=== PATIENT | female | born 1990 | race African-American/Black ===

== ENCOUNTER 2017-01-24 15:18 | Observation (INO) | payer OTHER ==
[2017-01-24 17:40] LABS: BASOPHILS # (AUTO) 0.1 X10^3/uL (0.0-0.1); BASOPHILS % (AUTO) 0.9 % (0.2-1.0); EOSINOPHILS # (AUTO) 0.1 x10^3/uL (0.0-0.2); EOSINOPHILS % (AUTO) 1.1 % (0.9-2.9); HEMATOCRIT 39.2 % (36.0-47.0); HEMOGLOBIN 13.3 g/dL (12.0-16.0); LYMPHOCYTES # (AUTO) 2.5 X10^3/uL (1.3-2.9); LYMPHOCYTES % (AUTO) 37.5 % (21.0-51.0); MEAN CORPUSCULAR HEMOGLOBIN 24.7 pg (27.0-34.0); MEAN CORPUSCULAR HGB CONC 33.8 g/dL (33.0-35.0); MEAN CORPUSCULAR VOLUME 73.2 fL (80.0-100.0); MEAN PLATELET VOLUME 9.1 fL (7.4-11.0); MONOCYTES # (AUTO) 0.6 x10^3/uL (0.3-0.8); MONOCYTES % (AUTO) 9.4 % (0.0-13.0); NEUTROPHILS # (AUTO) 3.5 x10^3/uL (2.2-4.8); NEUTROPHILS % (AUTO) 51.1 % (42.0-75.0); PLATELET COUNT 315 X10^3/uL (150.0-450.0); RED BLOOD COUNT 5.36 X10^6/uL (3.5-5.4); RED CELL DISTRIBUTION WIDTH 16.3 % (11.6-16.5); WHITE BLOOD COUNT 6.8 X10^3/uL (3.6-10.0)
[2017-01-24 17:41] VITALS: BMI 38.9
[2017-01-24 17:53] LABS: ALANINE AMINOTRANSFERASE 24 Units/L (12-78); ALBUMIN 4.2 g/dL (3.4-5.0); ALKALINE PHOSPHATASE 73 Units/L (46-116); AMYLASE 68 Units/L (25-115); ASPARTATE AMINO TRANSFERASE 20 Units/L (15-37); BLOOD UREA NITROGEN 11 mg/dL (7-18); CALCIUM 9.4 mg/dL (8.5-10.1); CARBON DIOXIDE 20.5 mmol/L (21-32); CHLORIDE 108 mmol/L (98-107); CREATININE 1.16 mg/dL (0.55-1.02); GLUCOSE 92 mg/dL (65-99); LIPASE 88 Units/L (73-393); MAGNESIUM 1.4 mg/dL (1.7-2.9); SODIUM 144 mmol/L (136-145); TOTAL PROTEIN 8.6 g/dL (6.4-8.2); eGFR BLACK RACES > 60 (>60); eGFR NON BLACK RACES 59 (>60)
[2017-01-24] MEDS ORDERED: K-RIDER 10 MEQ/NS 100 ML 10 MEQ/100 ML BAG IV PRN (17:57)
[2017-01-24] MEDS ORDERED: POTASSIUM CHLORIDE LIQ 20 MEQ UDC PO PRN (17:57)
[2017-01-24] MEDS ORDERED: K-LYTE EFFERVESCENT PO PRN (17:57)
[2017-01-24 18:09] LABS: HYPOCHROMASIA SLIGHT; MICROCYTOSIS SLIGHT; PLATELET MORPHOLOGY COMMENT NORMAL (NORMAL)
[2017-01-24] MEDS: NS 1000 ML 1,000 ML IV SCH (18:14)
[2017-01-24] MEDS: PHENERGAN INJ 25 MG IV PRN (18:14)
--- NOTE | 2017-01-24 19:35 | RAD ---
HISTORY: Nausea and vomiting and diarrhea Study: Acute abdominal series Comparison: None Findings: The trachea is midline. The cardiac silhouette is unremarkable. The lungs are clear without focal infiltrate or effusion. The bony thorax is unremarkable. Flat plate and upright evaluation of the abdomen demonstrates a normal bowel gas pattern. There are cholecystectomy clips. No pathological soft tissue mass or calcification can be observed. The bony structures are grossly intact. IMPRESSION: 1. No acute cardiopulmonary disease. 2. No evidence for acute abdominal pathology identified. Reported By:
[2017-01-24] MEDS: PROTONIX INJ 40 MG VIAL IVP SCH (21:10)
[2017-01-24] MEDS: TYLENOL 325 MG TAB PO PRN (21:59)
[2017-01-24] MEDS: K-DUR TAB 20 MEQ PO PRN (23:21)
[2017-01-25 00:25] LABS: CRYPTOSPORIDIUM PARVUM ANTIGEN NEGATIVE (NEGATIVE); GIARDIA LAMBLIA ANTIGEN NEGATIVE (NEGATIVE)
[2017-01-25] MEDS: NS 1000 ML 1,000 ML IV SCH ×5 (02:40→14:10)
[2017-01-25 06:31] LABS: BASOPHILS % (AUTO) 0.8 % (0.2-1.0); EOSINOPHILS # (AUTO) 0.1 x10^3/uL (0.0-0.2); EOSINOPHILS % (AUTO) 2.6 % (0.9-2.9); HEMATOCRIT 34.8 % (36.0-47.0); HEMOGLOBIN 11.6 g/dL (12.0-16.0); LYMPHOCYTES # (AUTO) 1.9 X10^3/uL (1.3-2.9); LYMPHOCYTES % (AUTO) 40.1 % (21.0-51.0); MEAN CORPUSCULAR HEMOGLOBIN 24.6 pg (27.0-34.0); MEAN CORPUSCULAR HGB CONC 33.4 g/dL (33.0-35.0); MEAN CORPUSCULAR VOLUME 73.7 fL (80.0-100.0); MEAN PLATELET VOLUME 9.3 fL (7.4-11.0); MONOCYTES # (AUTO) 0.6 x10^3/uL (0.3-0.8); MONOCYTES % (AUTO) 12.4 % (0.0-13.0); NEUTROPHILS # (AUTO) 2.1 x10^3/uL (2.2-4.8); NEUTROPHILS % (AUTO) 44.1 % (42.0-75.0); PLATELET COUNT 262 X10^3/uL (150.0-450.0); RED BLOOD COUNT 4.72 X10^6/uL (3.5-5.4); WHITE BLOOD COUNT 4.8 X10^3/uL (3.6-10.0)
[2017-01-25 06:45] LABS: ALANINE AMINOTRANSFERASE 22 Units/L (12-78); ALBUMIN 3.2 g/dL (3.4-5.0); ALKALINE PHOSPHATASE 57 Units/L (46-116); ASPARTATE AMINO TRANSFERASE 23 Units/L (15-37); BLOOD UREA NITROGEN 8 mg/dL (7-18); CALCIUM 8.3 mg/dL (8.5-10.1); CHLORIDE 110 mmol/L (98-107); COR CA(FOR HYPOALB) 8.9 mg/dL (8.5-10.1); CREATININE 1.04 mg/dL (0.55-1.02); GLUCOSE 89 mg/dL (65-99); SODIUM 143 mmol/L (136-145); eGFR BLACK RACES > 60 (>60); eGFR NON BLACK RACES > 60 (>60)
[2017-01-25 07:29] LABS: HYPOCHROMASIA SLIGHT; MICROCYTOSIS SLIGHT; PLATELET MORPHOLOGY COMMENT NORMAL (NORMAL)
[2017-01-25] MEDS: PROTONIX INJ 40 MG VIAL IVP SCH ×2 (08:37→21:00)
[2017-01-25] MEDS ORDERED: ZESTRIL TAB 20 MG ONE (11:37)
[2017-01-25] MEDS: ZESTRIL TAB 20 MG PO SCH (12:29)
--- NOTE | 2017-01-25 13:46 | DR.H&P ---
H&P - History & Physical for Day of: H&P Date: 01/24/17 - Chief Complaint Chief Complaint: ABDOMINAL PAIN N/V/D - Allergies Allergies/Adverse Reactions: Allergies Allergy/AdvReac Type Severity Reaction Status Date / Time No Known Drug Allergies Allergy Verified 01/24/17 17:25 - History of Present Illness History of Present Illness: 27 [address] [place] OFFICE WITH CO ABDOMINAL PAIN WITH N/V/D ONSET AFTER EATING FLYING [place]YS, PT WAS BEEN SEEN IN [facility] AND HAD CT SCAN PRIOR TO ADMISSION. PLAN TO ADMIT, STOOL STUDIES, ABD SERIES. CBC CMP IV HYDRATION, PAIN AND NAUSEA CONTROL - Past Medical History Past Medical History: GERD, Hypertension - Past Surgical History Surgical History: , Cholecystectomy, Tonsillectomy - Family History Family Medical History: Cancer - Social History Does patient currently use any type of tobacco product: No Have you used tobacco products in the last 12 months: No Type of Tobacco Use: None Does any household member use tobacco: No Alcohol Use: None - Medications Home Medications: Lisinopril 1 tab PO DAILY 01/24/17 [History Confirmed 01/24/17] Omeprazole [PRILOSEC 20 MG *] 40 mg PO DAILY 01/24/17 [History Confirmed ] - Review of Systems Constitutional: Weakness Eyes: No Symptoms Reported ENT: No Symptoms Reported Respiratory: No Symptoms Reported Cardiovascular: No Symptoms Reported Gastrointestinal: Vomiting, Abdominal Pain, Diarrhea, Constipation Genitourinary: No Symptoms Reported Musculoskeletal: No Symptoms Reported Skin: No Symptoms Reported Neurological: Weakness - Physical Exam Vital Signs: Temperature 98.5 F Pulse Rate [Brachial] 74 Respiratory Rate 18 Blood Pressure [Left Arm] 112/67 Blood Pressure [Right Arm] 119/61 O2 Sat by Pulse Oximetry 100 Oriented: Normal Eyes: Normal Ear: Normal Nose: Normal Throat: Normal Respiratory: Clear Throughout Cardiovascular: Normal : Normal Auscultation: Bowel Sounds: Increased Palpation: Normal Tenderness: RUQ, LUQ, Epigastric Skin: Normal Musculoskeletal: Normal Psychiatric: Normal Speech Pattern: Clear, Appropriate - Assessment/Plan (1) Gastroenteritis Status: Acute Plan: ADMIT, STOOL STUDIES, IV HYDRATION. ABD SERIES (2) GERD (gastroesophageal reflux disease) Qualifiers: Esophagitis presence: E Status: Acute
[2017-01-25] MEDS: ZOFRAN INJ 4 MG VIAL IVP PRN (13:53)
--- NOTE | 2017-01-25 13:53 | PCM.PROG ---
Progress Note - Progress Note for Day of Date: 01/25/17 - Subjective Subjective: 27 BF ADMITTED ONE DAY AGO WITH GASTROENTERITIS, PT DENIES VOMTING THIS AM , STOOL NEGATIVE AT THIS TIME, WILL ADD CIPRO AND FLAGYL, CONTINUE IV HYDRATION. REPEAT AM LABS, UA TODAY. MAY ADVANCE DIET TO FULL LIQUID TOLERATED - Past Medical Family Social History Past Med/Fam/Surg Hx: No changes since H&P Allergies: Allergies No Known Drug Allergies Allergy (Verified 01/24/17 17:25) - Review of Systems ROS: No change since H&P - Vital Signs and I&O's Vital Signs: Temperature 98.5 F Pulse Rate [Brachial] 74 Respiratory Rate 18 Blood Pressure [Left Arm] 112/67 Blood Pressure [Right Arm] 119/61 O2 Sat by Pulse Oximetry 100 Intake and Output: Intake & Output 01/23/17 01/24/17 01/25/17 01/26/17 11:59 11:59 11:59 11:59 Intake Total 480 Balance 480 - Physical Exam Oriented: Normal Eyes: Normal Ear: Normal Nose: Normal Throat: Normal Cardiovascular: Normal : Normal Auscultation: Bowel Sounds: Increased Tenderness: RUQ, LUQ, Epigastric Skin: Normal Musculoskeletal: Normal Psychiatric: Normal Speech Pattern: Clear, Appropriate - Laboratory and Diagnostics Result Diagrams: 01/25/17 05:24 01/25/17 05:24 Labs: 01/24/17 22:00 Stool - Final Laboratory WBC 4.8 X10^3/uL (3.6-10.0) 01/25/17 05:24 RBC 4.72 X10^6/uL (3.5-5.4) 01/25/17 05:24 Hgb 11.6 g/dL (12.0-16.0) L 01/25/17 05:24 Hct 34.8 % (36.0-47.0) L 01/25/17 05:24 MCV 73.7 fL (80.0-100.0) L 01/25/17 05:24 MCH 24.6 pg (27.0-34.0) L 01/25/17 05:24 MCHC 33.4 g/dL (33.0-35.0) 01/25/17 05:24 RDW 16.0 % (11.6-16.5) 01/25/17 05:24 Plt Count 262 X10^3/uL (150.0-450.0) 01/25/17 05:24 Plt Count Comment Adequate (ADEQUATE) 01/25/17 05:24 MPV 9.3 fL (7.4-11.0) 01/25/17 05:24 Neut % 44.1 % (42.0-75.0) 01/25/17 05:24 Lymph % 40.1 % (21.0-51.0) 01/25/17 05:24 [place] % 12.4 % (0.0-13.0) 01/25/17 05:24 Eos % 2.6 % (0.9-2.9) 01/25/17 05:24 Baso % 0.8 % (0.2-1.0) 01/25/17 05:24 Neut # 2.1 x10^3/uL (2.2-4.8) L 01/25/17 05:24 Lymph # 1.9 X10^3/uL (1.3-2.9) 01/25/17 05:24 [place] # 0.6 x10^3/uL (0.3-0.8) 01/25/17 05:24 Eos # 0.1 x10^3/uL (0.0-0.2) 01/25/17 05:24 Baso # 0.0 X10^3/uL (0.0-0.1) 01/25/17 05:24 Absolute Nucleated RBC 0.1 /100WBC 01/25/17 05:24 Plt Morphology Comment Normal (NORMAL) 01/25/17 05:24 RBC Morphology Abnormal (NORMAL) A 01/25/17 05:24 Hypochromasia Slight A 01/25/17 05:24 Microcytosis Slight A 01/25/17 05:24 Sodium 143 mmol/L (136-145) 01/25/17 05:24 Corrected Sodium TNP 01/25/17 05:24 Potassium 3.6 mmol/L (3.5-5.1) 01/25/17 05:24 Chloride 110 mmol/L (98-107) H 01/25/17 05:24 Carbon Dioxide 22.0 mmol/L (21-32) 01/25/17 05:24 BUN 8 mg/dL (7-18) 01/25/17 05:24 Creatinine 1.04 mg/dL (0.55-1.02) H 01/25/17 05:24 Est GFR (MDRD) Af Amer > 60 (>60) 01/25/17 05:24 Est GFR (MDRD) Non-Af > 60 (>60) 01/25/17 05:24 Glucose 89 mg/dL (65-99) 01/25/17 05:24 Calcium 8.3 mg/dL (8.5-10.1) L 01/25/17 05:24 Corrected Calcium 8.9 mg/dL (8.5-10.1) 01/25/17 05:24 Magnesium 1.4 mg/dL (1.7-2.9) L 01/24/17 17:15 Total Bilirubin 0.50 mg/dL (0.2-1.0) 01/25/17 05:24 AST 23 Units/L (15-37) 01/25/17 05:24 ALT 22 Units/L (12-78) 01/25/17 05:24 Alkaline Phosphatase 57 Units/L (46-116) 01/25/17 05:24 Total Protein 7.0 g/dL (6.4-8.2) 01/25/17 05:24 Albumin 3.2 g/dL (3.4-5.0) L 01/25/17 05:24 Globulin 3.8 g/dL (2.5-4.5) 01/25/17 05:24 Albumin/Globulin Ratio 0.8 Ratio (1.1-2.1) L 01/25/17 05:24 Amylase 68 Units/L (25-115) 01/24/17 17:15 Lipase 88 Units/L (73-393) 01/24/17 17:15 Stool Description 60 g. brown/liquid 01/25/17 09:45 Stl Occult Blood (IFOB) Negative (NEGATIVE) 01/25/17 09:45 Stool for White Cells No wbc's seen (None) 01/24/17 22:00 Stl C. diff Tox B Gene Negative (NEGATIVE) 01/24/17 22:00 Stl C. diff [id number] Negative (NEGATIVE) 01/24/17 22:00 Cryptosporid parvum Ag Negative (NEGATIVE) 01/24/17 22:00 E. histolytica Antigen Negative (NEGATIVE) 01/24/17 22:00 Giardia lamblia Ag Negative (NEGATIVE) 01/24/17 22:00 - Plan (1) Gastroenteritis Status: Acute Plan: CIPRO, FLAGYL, IV HYDRATION. REPEAT AM LABS, ADVANCE DIET (2) GERD (gastroesophageal reflux disease) Status: Acute Qualifiers: Esophagitis presence: E
[2017-01-25] MEDS: FLAGYL IV PREMIX 500 MG BAG 500 MG/100 ML BAG IV SCH ×3 (14:00→21:00)
[2017-01-25] MEDS ORDERED: NS 1000 ML 1,000 ML IV SCH (14:00)
[2017-01-25] MEDS: CIPRO IV 400 MG PREMIX* 400 MG/200 ML IV.SOLN. IV SCH ×2 (15:28→22:00)
[2017-01-25] MEDS: MAG-OX TAB PO SCH ×2 (15:28→16:02)
[2017-01-25] MEDS: PHENERGAN INJ 25 MG IV PRN (16:03)
[2017-01-25] MEDS: RESTORIL CAP 15 MG PO PRN (22:25)
[2017-01-26] MEDS: FLAGYL IV PREMIX 500 MG BAG 500 MG/100 ML BAG IV SCH ×4 (02:51→22:05)
[2017-01-26 04:50] LABS: BILIRUBIN,URINE NEGATIVE (NEGATIVE); BLOOD/HEMOGLOBIN,URINE NEGATIVE (NEGATIVE); GLUCOSE, URINE NEGATIVE (NEGATIVE); KETONES,URINE NEGATIVE (NEGATIVE); LEUKOCYTE ESTERASE ,URINE 1+ (NEGATIVE); NITRITES,URINE NEGATIVE (NEGATIVE); PROTEIN,URINE 2+ (NEGATIVE); UROBILINOGEN,URINE NORMAL (NORMAL)
[2017-01-26 05:05] LABS: APPEARANCE,URINE SLIGHTLY HAZY (CLEAR); COLOR,URINE YELLOW (YELLOW)
[2017-01-26 05:06] LABS: BACTERIA,URINE 1+ /HPF (NEGATIVE); RBC,URINE 0-3 /HPF (NEGATIVE); SQUAMOUS EPITHELIAL CELL,UR NUMEROUS /HPF (NEGATIVE)
[2017-01-26] MEDS: NS 1000 ML 1,000 ML IV SCH ×3 (05:37→22:12)
[2017-01-26] MEDS: ZOFRAN INJ 4 MG VIAL IVP PRN ×2 (05:38→23:16)
[2017-01-26] MEDS: MAG-OX TAB PO SCH ×2 (06:31→17:31)
[2017-01-26 06:32] LABS: BASOPHILS % (AUTO) 0.7 % (0.2-1.0); EOSINOPHILS # (AUTO) 0.1 x10^3/uL (0.0-0.2); EOSINOPHILS % (AUTO) 2.3 % (0.9-2.9); HEMATOCRIT 33.9 % (36.0-47.0); HEMOGLOBIN 11.3 g/dL (12.0-16.0); LYMPHOCYTES # (AUTO) 1.9 X10^3/uL (1.3-2.9); LYMPHOCYTES % (AUTO) 34.3 % (21.0-51.0); MEAN CORPUSCULAR HEMOGLOBIN 24.7 pg (27.0-34.0); MEAN CORPUSCULAR HGB CONC 33.3 g/dL (33.0-35.0); MEAN PLATELET VOLUME 9.3 fL (7.4-11.0); MONOCYTES # (AUTO) 0.7 x10^3/uL (0.3-0.8); MONOCYTES % (AUTO) 12.2 % (0.0-13.0); NEUTROPHILS # (AUTO) 2.8 x10^3/uL (2.2-4.8); NEUTROPHILS % (AUTO) 50.5 % (42.0-75.0); PLATELET COUNT 286 X10^3/uL (150.0-450.0); RED BLOOD COUNT 4.58 X10^6/uL (3.5-5.4); RED CELL DISTRIBUTION WIDTH 16.4 % (11.6-16.5); WHITE BLOOD COUNT 5.6 X10^3/uL (3.6-10.0)
[2017-01-26 06:39] LABS: ALANINE AMINOTRANSFERASE 20 Units/L (12-78); ALBUMIN 3.2 g/dL (3.4-5.0); ALKALINE PHOSPHATASE 57 Units/L (46-116); ASPARTATE AMINO TRANSFERASE 16 Units/L (15-37); BLOOD UREA NITROGEN 6 mg/dL (7-18); CALCIUM 8.3 mg/dL (8.5-10.1); CARBON DIOXIDE 21.5 mmol/L (21-32); CHLORIDE 110 mmol/L (98-107); COR CA(FOR HYPOALB) 8.9 mg/dL (8.5-10.1); CREATININE 0.98 mg/dL (0.55-1.02); GLUCOSE 89 mg/dL (65-99); SODIUM 142 mmol/L (136-145); TOTAL PROTEIN 6.9 g/dL (6.4-8.2); eGFR BLACK RACES > 60 (>60); eGFR NON BLACK RACES > 60 (>60)
[2017-01-26 06:49] LABS: HYPOCHROMASIA ALT; MICROCYTOSIS SLIGHT; PLATELET MORPHOLOGY COMMENT NORMAL (NORMAL)
[2017-01-26] MEDS ORDERED: ZESTRIL TAB 20 MG ONE (07:53)
[2017-01-26] MEDS: K-DUR TAB 20 MEQ PO PRN (08:00)
[2017-01-26] MEDS: PROTONIX INJ 40 MG VIAL IVP SCH ×2 (08:00→22:06)
[2017-01-26] MEDS: ZESTRIL TAB 20 MG PO SCH (08:00)
[2017-01-26] MEDS: CIPRO IV 400 MG PREMIX* 400 MG/200 ML IV.SOLN. IV SCH ×2 (10:09→22:05)
[2017-01-26] MEDS: RESTORIL CAP 15 MG PO PRN (22:06)
[2017-01-27] MEDS: FLAGYL IV PREMIX 500 MG BAG 500 MG/100 ML BAG IV SCH ×3 (02:47→15:13)
[2017-01-27] MEDS: MAG-OX TAB PO SCH (07:00)
[2017-01-27] MEDS: TYLENOL 325 MG TAB PO PRN (07:05)
[2017-01-27] MEDS: NS 1000 ML 1,000 ML IV SCH (07:29)
[2017-01-27] MEDS ORDERED: ZESTRIL TAB 20 MG ONE (07:50)
[2017-01-27] MEDS: PROTONIX INJ 40 MG VIAL IVP SCH (08:05)
[2017-01-27] MEDS: CIPRO IV 400 MG PREMIX* 400 MG/200 ML IV.SOLN. IV SCH (08:05)
[2017-01-27] MEDS: ZESTRIL TAB 20 MG PO SCH (08:05)
[2017-01-27] MEDS: ZOFRAN INJ 4 MG VIAL IVP PRN (09:45)
[2017-01-27 11:58] VITALS: BP 167/102
== END 2017-01-27 16:20 | disposition home or self-care (01) ==
LOC: ICU 15:18 → MED/SURG 16:00
PROVIDERS: ADMIT Internal Medicine; ATTEND Internal Medicine
DX: K52.89 Other specified noninfective gastroenteritis and colitis (principal); R11.2 Nausea with vomiting, unspecified; R19.7 Diarrhea, unspecified; R10.84 Generalized abdominal pain; I10 Essential (primary) hypertension; K21.9 Gastro-esophageal reflux disease without esophagitis; E87.6 Hypokalemia; R94.4 Abnormal results of kidney function studies
CPT/HCPCS: 36415; 74022; 80053; 81001; 82150; 82270; 83690; 83735; 84132; 85025; 87040; 87045; 87205; 87328; 87329; 87336; 87427; 87493; 87899; A4222; C9113; S0030; G0378; J0744; J2405; J2550